=== PATIENT | female | born 1960 | race African-American/Black ===

== ENCOUNTER 2016-06-30 17:09 | Emergency (ER) | payer SELFPAY ==
[2016-06-30] MEDS ORDERED: Fentanyl 100 MCG/2 ML VIAL ONE (17:58)
--- NOTE | 2016-06-30 20:36 | RAD ---
FOUR VIEWS LEFT KNEE: Comparison: 04-11-15 History: Left knee pain after bumping it while falling. FINDINGS: Four views of the left knee shows no evidence of acute fracture or dislocation. Very small osteophy solange are seen in the mediofemoral tibial compartment consistent with osteoarthritis. A small knee ef fusion is seen. Vascular calcifications are seen posterior to the knee. IMPRESSION: 1. No evidence of acute osseous abnormality. 2. Mild left knee osteoarthritis. POS: [facility]
--- NOTE | 2016-06-30 20:38 | RAD ---
TWO VIEWS LEFT FEMUR: Comparison: 06-30-16 History: Left leg pain after bumping it while losing balance. FINDINGS: Two views of the left femur shows no evidence of acute fracture or dislocation. No focal soft tissu e swelling is seen. No degenerative change is seen in the hip. IMPRESSION: No evidence of acute osseous abnormality. POS: [facility]
== END 2016-06-30 19:24 | disposition home or self-care (01) ==
LOC: NAV ERS 17:09
DX: S83.92XA Sprain of unspecified site of left knee, initial encounter (principal); I10 Essential (primary) hypertension; F32.9 Major depressive disorder, single episode, unspecified; F17.210 Nicotine dependence, cigarettes, uncomplicated; Z79.899 Other long term (current) drug therapy; X50.0XXA Overexertion from strenuous movement or load, initial encounter
CPT/HCPCS: 96372; J3010

== ENCOUNTER 2017-04-04 06:11 | Emergency (ER) | payer SELFPAY ==
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
== END 2017-04-04 07:26 | disposition home or self-care (01) ==
LOC: NAV ERS 06:11
DX: S59.912A Unspecified injury of left forearm, initial encounter (principal); M19.90 Unspecified osteoarthritis, unspecified site; I10 Essential (primary) hypertension; F32.9 Major depressive disorder, single episode, unspecified; F17.210 Nicotine dependence, cigarettes, uncomplicated; Z79.899 Other long term (current) drug therapy; W18.30XA Fall on same level, unspecified, initial encounter

== ENCOUNTER 2018-02-10 19:15 | Outpatient (CLI) | payer OTHER ==
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
== END 2018-02-10 19:16 | disposition home or self-care (01) ==
LOC: NAV RAD 19:15
PROVIDERS: ATTEND Nurse Practitioner Family
DX: R51 Headache (principal)
CPT/HCPCS: 70140